=== PATIENT | female | born 1975 | race Caucasian/White ===

== ENCOUNTER 2017-02-12 22:39 | Emergency (ER) | payer OTHER ==
[~2017-02-12] VITALS: Ht 162.6 cm; Wt 59.9 kg
[2017-02-12 22:42] VITALS: BP 114/82
--- NOTE | 2017-02-12 22:49 | NUR ---
SENT BACK TO LOBBY IN STABLE CONDITION, AMBULATORY, A/W FOR BED, ELVIS NOTED.
[2017-02-12 23:15] LABS: HEMATOCRIT 46.1 % (36-48); HEMOGLOBIN 15.1 g/dL (12.0-16.0); MEAN CORPUSCULAR HEMOGLOBIN 29 pg (27-31); MEAN CORPUSCULAR HGB CONC 33 g/dL (33-37); MEAN CORPUSCULAR VOLUME 90 fL (80-94); PLATELET COUNT (AUTO) 217 K/uL (140-450); RED BLOOD CELL COUNT(AUTO) 5.12 MIL/uL (4.20-5.40); WHITE BLOOD COUNT (AUTO) 10.6 K/uL (4.8-10.8)
[2017-02-12 23:21] LABS: ANION GAP 13.1 (8-16); CARBON DIOXIDE 28.8 mmol/L (21-32); CREATININE 0.8 mg/dL (0.6-1.3); POTASSIUM 3.9 mmol/L (3.5-5.1)
[2017-02-12 23:23] LABS: LYMPHOCYTES % (MANUAL) 8 % (20-46); MONOCYTES % (MANUAL) 1 % (5-12)
[2017-02-12 23:27] LABS: ALBUMIN 4.7 g/dL (3.4-5.0); TOTAL BILIRUBIN 0.9 mg/dL (0.0-1.0)
--- NOTE | 2017-02-13 01:25 | NUR ---
PT ARRIVED TO ER BED 12 AT 0125
--- NOTE | 2017-02-13 01:27 | NUR ---
41Y F BIB FAMILY C/O N/V/D S/P FOOD INGESTION 1700 TODAY. PT STATES SHE THINKS SHE MAY HAVE BEEN FOOD POSIONED. PT DENIES ANY SOB,CP AT THE MOMENT. PT AAOX4. PT BREATHING IS UNLABORED AND EVEN. ER MD MADE AWARE OF PT.
[2017-02-13 01:55] VITALS: BP 114/82
--- NOTE | 2017-02-13 01:55 | NUR ---
Patient discharged with v/s stable. Written and verbal after care instructions given and explained. Patient alert, oriented and verbalized understanding of instructions. Ambulatory with steady gait. All questions addressed prior to discharge. ID band removed. Patient advised to follow up with PMD. Rx of IMODIUM AND ZOFRAN given. Patient educated on indication of medication including possible reaction and side effects. Opportunity to ask questions provided and answered.
== END 2017-02-13 01:55 | disposition home or self-care (01) ==
LOC: MED 22:39
DX: R11.2 Nausea with vomiting, unspecified (principal); R10.13 Epigastric pain; R19.7 Diarrhea, unspecified; Z90.89 Acquired absence of other organs
CPT/HCPCS: 36415; 80053; 81002; 81025; 83690; 85025; 99284